=== PATIENT | male | born 1995 | race Two or more races ===

== ENCOUNTER 2022-10-02 16:14 | Emergency (ER) | payer OTHER ==
[~2022-10-02] VITALS: Ht 172.7 cm; Wt 90.7 kg
--- NOTE | 2022-10-02 16:38 | NUR ---
BIB [facility] FOR BOOKING. PT C/O EPIGASTRIC PAIN AND TINGILNG ON FINGER TIPS. BREATHING EVEN AND UNLABORED. AMBULATED TO BED WITH STEADY GAIT. AAOX4. CONNECTED TO MONITOR. VITAL SIGNS STABLE. SAFETY PRECAUTIONS IN PLACE. AWAITING MD ORDERS. [employer] OFFIC[employer] AT BEDSIDE.
[2022-10-02] MEDS ORDERED: FAMOTIDINE/PF INJ 40 MG in IV D5W 50 ML IV ONE (18:00)
--- NOTE | 2022-10-02 18:06 | NUR ---
ESTABLISHED IV ACCESS 18G LEFT FOREARM. BLOOD DRAWN AND SENT TO LAB.
[2022-10-02 18:22] LABS: BASOPHILS % (AUTO) 0.2 % (0.0-2.0); EOSINOPHILS % (AUTO) 0.6 % (0.0-6.0); HEMATOCRIT 47 % (39-51); HEMOGLOBIN 14.8 g/dL (13.5-17.5); LYMPHOCYTES # (AUTO) 2.2 K/uL (0.8-4.8); LYMPHOCYTES % (AUTO) 25.3 % (20.0-44.0); MEAN CORPUSCULAR HGB CONC 32 g/dl (31.0-36.0); MEAN CORPUSCULAR VOLUME 71 fL (80-96); MONOCYTES # (AUTO) 0.6 K/uL (0.1-1.30); MONOCYTES % (AUTO) 6.6 % (2.0-12.0); NEUTROPHILS % (AUTO) 67.3 % (43.0-81.0); PLATELET COUNT (AUTO) 241 K/uL (150-450); RED BLOOD CELL COUNT(AUTO) 6.61 MIL/uL (4.5-6.0); WHITE BLOOD COUNT (AUTO) 8.9 K/uL (4.3-11.0)
[2022-10-02] MEDS ORDERED: IV NS 0.9% 500 ML BAG IV ONE (18:30)
[2022-10-02 18:41] LABS: ALBUMIN 4.1 g/dL (3.4-5.0); BILIRUBIN,DIRECT 0.2 mg/dL (0.0-0.2); BILIRUBIN,TOTAL 1.1 mg/dL (0.2-1.0); TOTAL PROTEIN, SERUM 8.1 g/dL (6.4-8.2)
[2022-10-02] MEDS ORDERED: FAMOTIDINE/PF INJ 20 MG/2 ML VIAL IV ONE ×3 (18:52→19:00)
[2022-10-02 19:09] VITALS: BP 144/85
[2022-10-02] MEDS ORDERED: IOHEXOL-300 100 ML VIAL IV ONE (19:10)
[2022-10-02] MEDS ORDERED: CT SWABBABLE VALVE TRANS SET 1 EA INFUS.SET MC ONE (19:10)
[2022-10-02] MEDS ORDERED: IV NS 0.9% 250 ML IV ONE (19:10)
[2022-10-02 19:38] LABS: LYMPHOCYTES % (MANUAL) 26 % (16-48); MONOCYTES % (MANUAL) 9 % (0-11.0); NEUTROPHILS % (MANUAL) 65 (42-76)
--- NOTE | 2022-10-02 20:30 | NUR ---
Patient discharged to [facility] custody in stable condition. Written and verbal after care instructions given. Patient verbalizes understanding of instruction. IV removed. Catheter intact and site benign. Pressure and 4x4 applied to site. No bleeding noted. pt ambulatory with a steady gait
== END 2022-10-02 20:32 ==
LOC: ER 16:20
DX: R10.9 Unspecified abdominal pain (principal); Z87.442 Personal history of urinary calculi
CPT/HCPCS: 99284; 96374; 93005; 85025; 80048; 83690; 80076; 36415; 85730; 86850; 85007; J3490; J7050; J7040; Q9967; J7060